=== PATIENT | female | born 1950 | race American Indian/Alaskan Native ===

== ENCOUNTER 2019-03-18 14:07 | Outpatient (CLI) | payer MEDICARE ==
--- NOTE | 2019-03-19 11:19 | Mammography Report ---
DIGITAL SCREENING MAMMOGRAM WITH CAD, 03/18/2019 INDICATION: Routine screening mammography. TECHNIQUE: Digital bilateral 2D mammography was obtained in the craniocaudal and mediolateral obliq ue projections. This examination was interpreted with the benefit of Computer-Aided Detection analysi s. COMPARISON: None available. FINDINGS: Breast Density: There are scattered areas of fibroglandular density. There is no evidence of dominant mass, suspicious calcifications or architectural distortion in eithe r breast. IMPRESSION: No mammographic evidence of malignancy. Follow up recommendation: Routine yearly BI-RADS Category 1: Negative. A "normal" or negative report should not discourage follow up or biopsy of a clinically significant f inding. A written summary of these findings will be mailed to the patient. The patient will be entered into a mammography reporting system which will generate a reminder letter for the patient's next appointmen t at the appropriate interval. The [employer] recommends yearly mammograms starting at age 40 and continuing as l judi as a woman is in good health. Breast MRI is recommended for women with an approximate 20-25% or greater lifetime risk of breast cancer, including women with a strong family history of breast or ova curt cancer or who have been treated for Hodgkin's disease. Signer Name: Kian Helton MD Signed: 03/19/2019 11:14 AM Workstation Name: [id number]
== END 2019-03-18 14:08 | disposition home or self-care (01) ==
LOC: SPVWC 14:07
PROVIDERS: ATTEND Family Medicine
DX: Z12.31 Encounter for screening mammogram for malignant neoplasm of breast (principal)
CPT/HCPCS: 77067

== ENCOUNTER 2019-03-28 13:18 | Outpatient (CLI) | payer MEDICARE ==
--- NOTE | 2019-03-31 14:12 | Mammography Report ---
BONE DEXA CLINICAL: Postmenopausal. TECHNIQUE: 3 site bone DEXA performed on an Hologic scanner. FINDINGS: The average BMD of the lumbar spine L1-L4 is 0.946g/cm squared with a T score of -1.9 and a Z score o f +0.3. The average total BMD of the left hip is 0.895 g/cm squared with a T score of -0.9and a Z score of +0 .2. The left femoral neck BMD is 0.649 g/cm squared with a T score of -2.1 and a Z score of -0.8. IMPRESSION: 1. WHO classification: Osteopenia with increased fracture risk based on spine measurements. 2. WHO classification Osteopenia with increased fracture risk based on left hip measurements. RECOMMENDATION: Clinical correlation and routine screening. Definitions: BMD equal bone mineral density T score = BMD related to peak bone mass of young adult (Cook expressed an standard deviation) Z score = age-matched BMD expressed in SD World health organization (WHO) diagnostic criteria Normal T score greater than equal to 1 standard deviation Osteopenia T score between -1 and -2.4 standard deviation Osteoporosis T score -2.5 standard deviation or below. Note: BMD is not the only risk factor for fracture; also consider factors such as the patient's age, risk of falling, previous osteoporotic fracture, family history of osteoporotic fractures, current sm oker and low body weight. Z scores are not calculated if greater than 80 years of age. Signer Name: Kian Helton MD Signed: 03/31/2019 2:07 PM Workstation Name: [id number]
== END 2019-03-28 13:19 | disposition home or self-care (01) ==
LOC: SPVWC 13:18
PROVIDERS: ATTEND Family Medicine
DX: Z91.89 Other specified personal risk factors, not elsewhere classified (principal); Z78.0 Asymptomatic menopausal state
CPT/HCPCS: 77080